=== PATIENT | female | born 1955 | race Caucasian/White ===

== ENCOUNTER 2017-03-09 15:01 | Inpatient (IN) | payer OTHER ==
[~2017-03-09] VITALS: Ht 154.9 cm; Wt 59.0 kg
[2017-03-09] MEDS ORDERED: LYRICA75 MG PO (21:16)
[2017-03-09] MEDS ORDERED: ZANAFLEX4 M1 PO (21:17)
[2017-03-09] MEDS ORDERED: NEXIUM40 MG PO (21:17)
[2017-03-09] MEDS ORDERED: ZESTRIL10 MG PO (21:18)
[2017-03-09] MEDS ORDERED: CATAPRES0.2 MG PO (21:18)
[2017-03-09] MEDS ORDERED: OPANA ER20 MG PO (21:19)
[2017-03-09] MEDS ORDERED: VALIUM 5 MG TAB5 MG PO (21:19)
[2017-03-09] MEDS ORDERED: PHENERGAN 25 MG25 M1 PO (21:20)
[2017-03-09] MEDS ORDERED: LEVOTHYROXINE100 MCG PO (21:20)
[2017-03-09] MEDS ORDERED: MAXALT10 MG PO (21:21)
[2017-03-09] MEDS ORDERED: LABETALOL HCL200 MG PO (21:32)
[2017-03-09] MEDS ORDERED: FIORICET TAB1 EA PO (21:32)
[2017-03-10 02:44] LABS: HEMOGLOBIN 10.3 gm/dl (12.3-15.3); RED BLOOD COUNT 4.34 M/UL (4.00-5.10); WHITE BLOOD COUNT 7.9 K/UL (4.5-11.0)
[2017-03-10 20:49] LABS: WHITE BLOOD COUNT 8.9 K/UL (4.5-11.0)
[2017-03-10 21:01] LABS: HEMOGLOBIN 15.2 gm/dl (12.3-15.3); RED BLOOD COUNT 6.31 M/UL (4.00-5.10)
[2017-03-11 04:36] LABS: RED BLOOD COUNT 5.26 M/UL (4.00-5.10); WHITE BLOOD COUNT 23.1 K/UL (4.5-11.0)
[2017-03-11 04:40] LABS: HEMOGLOBIN 12.6 gm/dl (12.3-15.3)
[2017-03-11 05:54] LABS: RED BLOOD COUNT 5.1 M/UL (4.00-5.10); WHITE BLOOD COUNT 23.4 K/UL (4.5-11.0)
[2017-03-11 05:57] LABS: HEMOGLOBIN 12.3 gm/dl (12.3-15.3)
[2017-03-11 16:21] LABS: ADENOVIRUS F 40/41 Not Detected (Negative); ASTROVIRUS Not Detected (Negative); CAMPYLOBACTER Not Detected (Negative); CLOSTRIDIUM DIFFICILE TOX A/B Not Detected (Negative); CRYPTOSPORIDIUM Not Detected (Negative); E.COLI 0157 Not Detected (Negative); ENTAMOEBA HISTOLYTICA Not Detected (Negative); ENTEROAGGREGATIVE E.COLI (EAEC Not Detected (Negative); ENTEROPATHOGENIC E.COLI (EPEC) Not Detected (Negative); ENTEROTOXIGENIC E.COLI (ETEC) Not Detected (Negative); GIARDIA LAMBLIA Not Detected (Negative); NOROVIRUS GI/GII Not Detected (Negative); PLESIOMONAS SHIGELLOIDES Not Detected (Negative); ROTOVIRUS A Not Detected (Negative); SALMONELLA Not Detected (Negative); SAPOVIRUS Not Detected (Negative); SHIG/ENTEROINVAS.ECOLI (EIEC) Not Detected (Negative); SHIGA-LIK TOX.PRO.E.COLI (STEC Not Detected (Negative); VIBRIO Not Detected (Negative); VIBRIO CHOLERAE Not Detected (Negative); YERSINIA ENTEROCOLITICA Not Detected (Negative)
[2017-03-12 05:59] LABS: WHITE BLOOD COUNT 18.9 K/UL (4.5-11.0)
[2017-03-12 06:11] LABS: BUN/CREATININE RATIO 19 (0-10)
[2017-03-12 06:47] LABS: RED BLOOD COUNT 4.02 M/UL (4.00-5.10)
[2017-03-12 06:54] LABS: HEMOGLOBIN 9.6 gm/dl (12.3-15.3)
[2017-03-13 04:19] LABS: HEMOGLOBIN 9.3 gm/dl (12.3-15.3); RED BLOOD COUNT 3.88 M/UL (4.00-5.10)
[2017-03-13 04:20] LABS: WHITE BLOOD COUNT 9.4 K/UL (4.5-11.0)
[2017-03-13 04:37] LABS: BUN/CREATININE RATIO 13 (0-10)
[2017-03-13] MEDS ORDERED: LEVAQUIN750 MG PO (15:49)
[2017-03-13] MEDS ORDERED: FLAGYL500 MG PO (15:51)
== END 2017-03-13 16:25 | disposition home or self-care (01) | DRG 190 ==
LOC: PROG CARE 15:01 → MED SURG 4 03-12 15:31
PROVIDERS: Family Medicine; Internal Medicine; ADMIT Family Medicine
DX: J44.0 Chronic obstructive pulmonary disease with (acute) lower respiratory infection (principal); J18.9 Pneumonia, unspecified organism; A41.9 Sepsis, unspecified organism; N17.9 Acute kidney failure, unspecified; J96.11 Chronic respiratory failure with hypoxia; A09 Infectious gastroenteritis and colitis, unspecified; J98.11 Atelectasis; F11.20 Opioid dependence, uncomplicated; R09.1 Pleurisy; R07.89 Other chest pain; R74.8 Abnormal levels of other serum enzymes; D50.9 Iron deficiency anemia, unspecified; E89.0 Postprocedural hypothyroidism; Y83.8 Other surgical procedures as the cause of abnormal reaction of the patient, or of later complication, without mention of misadventure at the time of the procedure; Y81.3 Surgical instruments, materials and general- and plastic-surgery devices (including sutures) associated with adverse incidents; I10 Essential (primary) hypertension; E78.5 Hyperlipidemia, unspecified; K21.9 Gastro-esophageal reflux disease without esophagitis; G89.4 Chronic pain syndrome; R51 Headache; K59.03 Drug induced constipation; T40.2X5A Adverse effect of other opioids, initial encounter; F17.210 Nicotine dependence, cigarettes, uncomplicated; Z85.3 Personal history of malignant neoplasm of breast; Z85.43 Personal history of malignant neoplasm of ovary; Z85.850 Personal history of malignant neoplasm of thyroid; Z86.19 Personal history of other infectious and parasitic diseases; Z86.010 Personal history of colon polyps; Z72.3 Lack of physical exercise; Z79.1 Long term (current) use of non-steroidal anti-inflammatories (NSAID); Z99.81 Dependence on supplemental oxygen; Z79.899 Other long term (current) drug therapy; Z90.13 Acquired absence of bilateral breasts and nipples; Z90.710 Acquired absence of both cervix and uterus; Z90.722 Acquired absence of ovaries, bilateral; Z98.890 Other specified postprocedural states; Z83.3 Family history of diabetes mellitus; Z82.49 Family history of ischemic heart disease and other diseases of the circulatory system; Z80.9 Family history of malignant neoplasm, unspecified
CPT/HCPCS: ECHO; 36415; 36600; 71020; 74022; 74150; 80048; 80076; 81001; 82150; 82272; 82550; 82553; 82728; 82803; 82962; 83540; 83550; 83605; 83690; 83735; 83880; 84100; 84443; 84484; 85025; 85027; 87040; 87070; 87081; 87086; 87205; 87507; 93005; 93306; 94640; 94664; J0360; J1885; J1956; J2550; J2920; J7030; J7050